=== PATIENT | male | born 1960 | race Caucasian/White ===

== ENCOUNTER → 2024-02-22 11:19 | Outpatient (REF) | payer OTHER, SELFPAY | LOC: DHSLP 11:19 | PROVIDERS: ATTENDING PHYSICIAN Family Medicine | DX: G47.33 Obstructive sleep apnea (adult) (pediatric) (principal) | CPT/HCPCS: 95810 ==

== ENCOUNTER → 2024-06-24 15:40 | Outpatient (REF) | payer OTHER, SELFPAY | LOC: RAD 15:40 | PROVIDERS: ATTENDING PHYSICIAN Family Medicine | DX: R14.0 Abdominal distension (gaseous) (principal); R10.84 Generalized abdominal pain | CPT/HCPCS: 74177; Q9967 ==

== ENCOUNTER → 2024-06-26 08:42 | Outpatient (REF) | payer OTHER, SELFPAY | LOC: RAD 08:42 | PROVIDERS: ATTENDING PHYSICIAN Internal Medicine Endocrinology, Diabetes & Metabolism; FAMILY PHYSICIAN Family Medicine; REFERRING PHYSICIAN Urology | DX: E21.3 Hyperparathyroidism, unspecified (principal) | CPT/HCPCS: 78071; A9500 ==

== ENCOUNTER → 2024-07-10 06:57 | Outpatient (REF) | payer OTHER, SELFPAY | LOC: HWRAD 06:57 | PROVIDERS: ATTENDING PHYSICIAN Family Medicine; OTHER PHYSICIAN Urology; REFERRING PHYSICIAN Internal Medicine Endocrinology, Diabetes & Metabolism | DX: E06.3 Autoimmune thyroiditis (principal); E21.3 Hyperparathyroidism, unspecified; E03.8 Other specified hypothyroidism | CPT/HCPCS: 76536 ==

== ENCOUNTER → 2024-08-05 12:23 | Outpatient (REF) | payer OTHER, SELFPAY | LOC: HWRCS 12:23 | PROVIDERS: ATTENDING PHYSICIAN Internal Medicine Cardiovascular Disease; FAMILY PHYSICIAN Family Medicine | DX: R07.9 Chest pain, unspecified (principal) | CPT/HCPCS: 78452; 93017; A9500 ==

== ENCOUNTER 2024-08-07 08:04 | Day surgery (SDC) | payer OTHER, SELFPAY ==
[2024-08-07] VITALS (19 sets, daily range): BP systolic 100–130; BP diastolic 63–79; BMI 32.1
[2024-08-07] MEDS: LOW STRENGTH ASPIRIN 81 MG PO (08:48)
[2024-08-07] MEDS: NSS 321 ML IV (08:50)
[2024-08-07 11:20] LABS: ACT-LR - POC 361 Seconds (116-155)
[2024-08-07 11:44] LABS: ACT-LR - POC 322 Seconds (116-155)
[2024-08-07 12:10] LABS: ACT-LR - POC 295 Seconds (116-155)
--- NOTE | 2024-08-07 14:10 | PTCARENOTE ---
Patient transferred to IVU. Patient ambulated to bathroom. Blood noted in urine. Dr. Castro aware. INSIDE SOLAR SALES CONSULTANT aware. UA ordered. Patient has history of Bladder CA and currently getting treatment. No pain with urination. No clots. IVU RN aware of plan.
--- NOTE | 2024-08-07 14:32 | PTCARENOTE ---
Patient received from laboratory worker in wheelchair. 1 out 10 left chest soreness unchanged. SB HR 39-41, BP 100/78, POX 99% right hand, right radial band in place, removed 3 cc of air. Voided in the bathroom, urine bloody, Dr Castro notified, UA ordered
and to be collected. Bedside ECHO in process now, lunch ordered, call hewitt in reach
[2024-08-07] MEDS: PROTONIX 40 MG PO (15:02)
--- NOTE | 2024-08-07 15:23 | CM ---
CM following for DC planning needs.
Met w/ patient at bedside to complete initial assessment.
Pt. resides w/ spouse in a private, muil level home. He is functionally indep. 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
Antic. DC plan is for home, no needs.
Will follow.
[2024-08-07 16:21] LABS: Urine Albumin 3+ (Neg - Trace); Urine Bilirubin Negative (Negative); Urine Character Cloudy (Clear); Urine Color Red; Urine Glucose Negative (Negative); Urine Ketone Negative (Negative); Urine Leukocyte 2+ (Negative); Urine Nitrite Negative (Negative); Urine Occult Blood 4+ (Negative); Urine Urobilinogen Negative (Neg - 1+); Urine pH 6.5 (5.0-9.0)
[2024-08-07 16:33] LABS: Urine Bacteria Few (Negative); Urine Red Blood Cell >100 /HPF (0-2); Urine Squamous Cell 0-2 /LPF (Few)
--- NOTE | 2024-08-07 17:06 | W.PN.UPDATE ---
Update Note
Progress Note Update
Appreciate urology input. Check renal and bladder u/s in AM with full bladder. Check CBC in AM. Cont aspirin and Plavix for now.
--- NOTE | 2024-08-07 17:17 | W.PN.URO.CBU ---
Today's Communication / Plan
-
send cx and needs full bladder for u/s if cannot void or disrended vheck bladder scan andf if over 300cc pals=ce [address] or [address] adn start cbi after hand irrigatin pt is voiidng now d[so no instrumentaion if asx
Assessment / Plan
-
dxs include uti, stones bladder cancer , bph but most logical dx is bcg cystitis The question will be if this ca stop sponataneously One option if does mot stop is to hold blood thinners and try asa onyl Will order ur cx and renal /
bladder u/s but if major clots and / or no void then cbi and [address]
Diagnosis
-
Date of Service: August 07, 2024
-
Patient Diagnosis:gross hemaruria without clots in pt s/p cardiac stent on plavix. Pt h/o bladder cancer with neg scope 2 months ago and forhis hgh grade tcc had 3 boosters of bcg last one ending this week
Post Op Day:
Subjective
-
painless entire stream hematuira
Objective
-
Vital Signs
Temp Pulse Resp BP Pulse Ox
97 F 38 18 103/66 98
08/07/24 08:21 08/07/24 14:45 08/07/24 13:07 08/07/24 14:45 08/07/24 14:07
Intake and Output
08/06/24 08/07/24 08/08/24
06:59 06:59 06:59
Intake Total 480 / 480
Output Total 600 / 600
Balance -120 / -120
Intake:
Oral fluids 480 / 480
Output:
Urine, Voided 600 / 600
Review of Systems
-
: Bleeding and Dark Urine
Physical Exam
-
General - well developed, well nourished, no acute distress
Chest - clear bilaterally
Abdomen - soft, non-tender, positive bowel sounds, no CVAT, no incisional pain or distention
Genitalia - normal
Rectal - normal
Skin - warm & dry with no rash
Neuro - AOx3, no motor deficits
Extremities - no clubbing, no cyanosis, no edema
Incision - clean, dry
Dressing - clean, dry, intact
Care Review
Data Reviewed
Discussed with: Cardiology, Nursing and Family
[2024-08-07] MEDS: FLOMAX 0.4 MG PO (17:19)
[2024-08-07] MEDS: LIPITOR 40 MG PO (17:19)
[2024-08-07] MEDS: ZOLOFT 50 MG PO (17:19)
--- NOTE | 2024-08-07 18:30 | ITS.CL.CATH ---
Transportation Worker - Catheterization
Cardiac Catheterization
Procedure Report:
LEFT HEART CATHETERIZATION AND CORONARY INTERVENTION
Date of Procedure: August 07, 2024
Referring: Doug Dixon
PROCEDURES:
1. Left heart catheterization, coronary angiogram.
2. Moderate sedation.
3. Successful percutaneous coronary artery intervention of tubular diffuse up to 90% mid LAD stenosis with one 2.75 x 34 mm Medtronic [place] drug-eluting stent, postdilated using IVUS guidance with a 3.0 x 20 mm NC Euphora balloon at 16 olivier distally
and 20 olivier proximally with an excellent angiographic and IVUS based result.
4. Successful percutaneous coronary artery intervention of focal hazy, thrombotic 80 to 85% distal LAD stenosis with one 2.5 x 12 mm Medtronic [place] drug-eluting stent, postdilated using IVUS guidance with 2.5 x 12 mm NC balloon at 16 olivier with an
excellent angiographic and IVUS based result.
INDICATION: Abnormal stress test
ACCESS: Right radial artery, 6 Fr. sheath, under US guidance
Ultrasound was utilized for vascular access. The radial artery was visualized under ultrasound, and the vessel was patent and pulsatile. An image was stored permanently in the patient's medical record. Under direct ultrasound guidance, a 6 Romansh
sheath was inserted into the artery using a micropuncture kit through a modified Seldinger technique.
HEMODYNAMICS : (mmHg)
AO (s/d) : 146/81
LV (s/d) : 134/5
LVEDP : 17
CORONARY FINDINGS
DOMINANCE: Right
LEFT MAIN: The left main artery is a large-caliber vessel with mild distal tapering and gives off the left anterior descending artery on the left circumflex artery.
LEFT ANTERIOR DESCENDING: The LAD is a large-caliber vessel which gives rise to 1 major high diagonal branch and a second small caliber D2. Mid LAD has tubular up to 90% stenosis at the takeoff of a large septal branch which was intervened upon as
noted below. Distal LAD at the level of the D2 takeoff has a hazy 80 to 85% stenosis which was also intervened upon with details below.
CIRCUMFLEX: The left circumflex artery is a medium caliber vessel which gives rise to 1 major obtuse marginal branch. Ostial left circumflex has 40 percent eccentric stenosis. OM1 has 30 to 40% proximal stenosis.
RIGHT CORONARY ARTERY: The right coronary artery is a medium caliber vessel which gives rise to the right posterior descending artery and the right posterolateral system. There is diffuse mild to moderate atherosclerotic plaque with distal RCA
having to focal regions of 40 to 50% stenosis.
CORONARY INTERVENTION:
SEDATION: 67 minutes of procedural sedation was utilized. An independent medical historian was present to assist with and help manage the patient's level of consciousness and physiologic status.
RADIATION SUMMARY: Fluoro Time (min): 20.4, Dose (mGy): 1484.7, DAP (Gy.cm2) : 106.91
Closure Device: Vascular band over right radial artery, 10 cc of air.
CONCLUSIONS
1. Successful percutaneous coronary artery intervention of tubular diffuse up to 90% mid LAD stenosis with one 2.75 x 34 mm Medtronic [place] drug-eluting stent, postdilated using IVUS guidance with a 3.0 x 20 mm NC Euphora balloon at 16 olivier distally
and 20 olivier proximally with an excellent angiographic and IVUS based result.
2. Successful percutaneous coronary artery intervention of focal hazy, thrombotic 80 to 85% distal LAD stenosis with one 2.5 x 12 mm Medtronic [place] drug-eluting stent, postdilated using IVUS guidance with 2.5 x 12 mm NC balloon at 16 olivier with an
excellent angiographic and IVUS based result.
3. Mildly elevated LVEDP at 17 mmHg.
RECOMMENDATIONS
1. Uninterrupted dual antiplatelet therapy with daily baby aspirin and 75 mg of Plavix along with high intensity statin and beta-medardo as tolerated.
2. Wean radial band per protocol.
3. Aggressive management of cardiovascular risk factors.
4. Full echocardiogram to assess biventricular function and rule out any significant valvular abnormalities.
5. Referral for outpatient cardiac rehab.
Copy to: Doug Dixon MD
Heather Castro MD, FACC, [facility]
--- NOTE | 2024-08-07 22:09 | PTCARENOTE ---
Received pt @ change of shift. AAOx3. VSS. Urine output good (500 cc), and color is yellow. Pt denies any discomfort. Right radial site is clean, dry, and intact. No swelling, and is soft to the touch. Discussed plan of care for evening. Pt
verbalized understanding. Call hewitt within reach.
[2024-08-08 04:10] VITALS: BP 124/74
[2024-08-08 04:39] LABS: Hemoglobin 14.5 g/dL (13.0-18.0); Mean Corp Hgb Conc. 34.5 g/dL (33.0-37.0); Mean Corpuscular Hgb 30.8 pg (27.0-31.0); Mean Corpuscular Volume 89.2 fL (80.0-94.0); Mean Platelet Volume 10.6 fL (7.4-10.4); Platelet Count 202 10^3/uL (130-400); Red Blood Cell Count 4.71 10^6/uL (4.70-6.10); Red Cell Dist. Width 13.2 % (11.5-14.5); White Blood Cell Count 7.8 10^3/uL (4.8-10.8)
[2024-08-08 05:24] LABS: Blood Urea Nitrogen 17 mg/dl (9-20); Calcium 9.9 mg/dl (8.4-10.2); Carbon Dioxide 23 mmol/L (22-30); Chloride 107 mmol/L (98-107); Estimated Creatinine Clearance 118 ml/min; Glucose 120 mg/dl (70-99); Potassium 4.7 mmol/L (3.5-5.1); Sodium 138 mmol/L (135-145); eGFR > 60.00
[2024-08-08] MEDS: SYNTHROID 125 MCG PO (05:27)
[2024-08-08 05:29] VITALS: BMI 32.2
[2024-08-08 07:11] VITALS: BP 133/88
[2024-08-08 07:28] VITALS: BP 135/86
[2024-08-08] MEDS: PLAVIX 75 MG PO (08:46)
[2024-08-08] MEDS: LOW STRENGTH ASPIRIN 81 MG PO (08:46)
[2024-08-08] MEDS: PROTONIX 40 MG PO (08:46)
--- NOTE | 2024-08-08 09:54 | W.PN.URO.CBU ---
Today's Communication / Plan
-
home if ok medicine
Assessment / Plan
-
dxs include uti, stones bladder cancer , bph but most logical dx is bcg cystitis had pre DAPT u/ with 100rbc and leukocytes no nitrites Pt clearing and u/s a[pears benign Suggest home on DAPT ad follow up [facility]
Diagnosis
-
Date of Service: August 08, 2024
-
Patient Diagnosis:
Post Op Day:
Patient Diagnosis:gross hemaruria without clots in pt s/p cardiac stent on plavix. Pt h/o bladder cancer with neg scope 2 months ago and forhis hgh grade tcc had 3 boosters of bcg last one ending this week
Post Op Day:
Subjective
-
urine clearing asx
Objective
-
Vital Signs
Temp Pulse Resp BP Pulse Ox
98.1 F 43 20 135/86 97
08/08/24 07:28 08/08/24 08:00 08/08/24 07:28 08/08/24 07:28 08/08/24 08:51
Intake and Output
08/07/24 08/08/24 08/09/24
06:59 06:59 06:59
Intake Total 480 / 480
Output Total 2049 1100 / 1100
Balance -1570 / -1570 -1100 / -1100
Intake:
Oral fluids 480 / 480
Output:
Urine, Voided 2049 1100 / 1100
Laboratory Results
08/08/24 04:25
08/08/24 04:25
Review of Systems
-
: No Symptoms
Physical Exam
-
General - well developed, well nourished, no acute distress
Chest - clear bilaterally
Abdomen - soft, non-tender, positive bowel sounds, no CVAT, no incisional pain or distention
Genitalia - normal
Rectal - normal
Skin - warm & dry with no rash
Neuro - AOx3, no motor deficits
Extremities - no clubbing, no cyanosis, no edema
Incision - clean, dry
Dressing - clean, dry, intact
Care Review
Data Reviewed
Discussed with: Cardiology, Nursing and Family
Ultrasound: Image Pers Reviewed
Total Time Spent with Patient (in minutes): 45
--- NOTE | 2024-08-08 11:10 | W.PN.CARDCBS ---
Addendum entered and electronically signed by Heather Castro MD 08/08/24 17:15:
I saw and examined the patient.
The Public Records Officer's note was reviewed and I agree with the note.
Comment: Patient did well overnight with no significant complaints. No chest discomfort or shortness of breath. His hematuria also appears to be clearing.
Vital signs and lab work reviewed. On exam patient is well-appearing, no acute distress, regular rate, no JVD, lungs are clear to auscultation bilaterally, no murmurs, rubs or gallops, abdomen is soft, nontender, nondistended with active bowel
sounds, right radial access site with dressing in place which is clean, dry and intact, warm extremities without significant edema.
.
Plan:
1. Continue dual antiplatelet therapy with daily baby aspirin and 75 mg of Plavix along with high intensity statin and beta-medardo as tolerated. LDL goal less than 55.
2. Echocardiogram reviewed showing normal biventricular function with aortic sclerosis.
3. No issues at the right radial access site.
4. As discussed with urology given significant improvement in the hematuria plan to follow-up as an outpatient with his urologist at [facility]. Hemoglobins remained stable. Urine analysis showing positive leuk esterase and blood without
evidence of nitrites. Urology will follow-up on urine culture.
5. Outpatient cardiac rehab referral and cardiology follow-up.
6. Stable for discharge from a cardiac standpoint. Emphasized importance of a high-fiber Mediterranean type diet and staying physically active to optimize his cardiovascular risk.
Heather Castro MD, [facility], [facility]
Original Note:
Today's Communication / Plan
-
post PCI, DAPT
post procedure hematuria most likely heparin related - resolved this am c/y/u
stable for home today
Impression / Plan
-
PCP: Mina Brady, DO
CDY: Doug Dixon MD
Impression:
Abnormal NST
CAD post PCI LAD x 3 KENRICK
PAF [id number] = [id number]
Hypothyroidism
Hyperparathyroidism
PVC's
Bladder cancer follows at [facility]
Hematuria
PTSD/Anxiety
Pre DM
Family hx premature CAD
Plan:
post PCI LAD x 3, no cp
post procedure had gross hematuria, no clots or difficulty passing urine
appreciate urology c/s - u/s this am no hydronephrosis
urine clear and yellow this am
Rad site stable
tele SB HR 40's, asymptomatic but will decrease metoprolol 12.5mg daily
Lipids pending, will increase atorvastatin from 20 to 40mg
DAPT ASA/Plavix
Activity restrictions reviewed
Cardiac rehab c/s
f/u DCA in 2-4 weeks
home today
PROCEDURES:
1. Left heart catheterization, coronary angiogram.
2. Moderate sedation.
3. Successful percutaneous coronary artery intervention of tubular diffuse up to 90% mid LAD stenosis with one 2.75 x 34 mm Medtronic [place] drug-eluting stent, postdilated using IVUS guidance with a 3.0 x 20 mm NC Euphora balloon at 16 olivier distally
and 20 olivier proximally with an excellent angiographic and IVUS based result.
4. Successful percutaneous coronary artery intervention of focal hazy, thrombotic 80 to 85% distal LAD stenosis with one 2.5 x 12 mm Medtronic [place] drug-eluting stent, postdilated using IVUS guidance with 2.5 x 12 mm NC balloon at 16 olivier with an
excellent angiographic and IVUS based result.
Progress Note - Vehicle Leasing And Rental Manager
Subjective
Date of Service: August 08, 2024
no cp, sob, amb room
Objective
Labs:
08/08/24 04:25
08/08/24 04:25
Labs
Hgb 14.5 g/dL (13.0-18.0) 08/08/24 04:25
Hct 42.0 % (39.0-52.0) 08/08/24 04:25
Plt Count 202 10^3/uL (130-400) 08/08/24 04:25
Sodium 138 mmol/L (135-145) 08/08/24 04:25
Potassium 4.7 mmol/L (3.5-5.1) 08/08/24 04:25
BUN 17 mg/dl (9-20) 08/08/24 04:25
Creatinine 0.8 mg/dL (0.7-1.3) 08/08/24 04:25
Glucose 120 mg/dl (70-99) H 08/08/24 04:25
Vital Signs and I&O:
Vital Signs
Temp Pulse Resp BP Pulse Ox
98.1 F 43 20 135/86 97
08/08/24 07:28 08/08/24 08:00 08/08/24 07:28 08/08/24 07:28 08/08/24 08:51
Vital Signs
Temp Pulse Resp BP Pulse Ox
98.1 F 43 20 135/86 97
08/08/24 07:28 08/08/24 08:00 08/08/24 07:28 08/08/24 07:28 08/08/24 08:51
Intake & Output
08/06/24 08/07/24 08/08/24 08/09/24
06:59 06:59 06:59 06:59
Intake Total 480 / 480
Output Total 2049 1100 / 1100
Balance -1570 / -1570 -1100 / -1100
Physical Exam
Physical Exam
NAD< AOX3
S1, S2, RRR
CTAB, non labored, no wheeze
SNTND Bsx4
R rad site c/d/i no HT
[2024-08-08 11:34] VITALS: BP 137/78
[2024-08-08 12:16] LABS: Triglyceride 148 mg/dl (10-149); Very Low Density Lipoprotein 29 mg/dl (0-30)
[2024-08-08 12:26] LABS: HDL Cholesterol 52 mg/dl; LDL Cholesterol, Calculated 53 mg/dl; Total Cholesterol 134 mg/dl (50-199)
--- NOTE | 2024-08-08 12:40 | CM ---
Met w/ patient + spouse at bedside.
Pt. hopeful for DC to home today. He identifies no concerns or needs at this time.
Plan is for home, no needs.
--- NOTE | 2024-08-08 14:02 | W.DS.TRANS ---
DC Summary - Lubricator Granulator
-
Discharge Instructions:
Discharge Diagnosis/Procedures Angioplasty with stent to LAD x 3
Diet Low Cholesterol
Driving Restrictions No driving for 24 hours
Other Services Cardiac Rehab
Instructions:
Stand-Alone Forms: DC Inst - Same Day PCI
Changes to Home Medications: Yes
Discharge Medications:
DC Medications w/original date entered in [employer]
levothyroxine 125 mcg tablet 125 mcg PO DAILY 01/14/16
multivitamin with folic acid 400 mcg tablet (Tab-A-Estevan) 1 tab PO DAILY 01/14/16
cholecalciferol (vitamin D3) 25 mcg (1,000 unit) tablet 2,000 units PO DAILY 01/15/16
alfuzosin 10 mg tablet,extended release 24 hr 10 mg PO DAILY 08/07/24
aspirin 81 mg chewable tablet 81 mg PO DAILY 08/07/24
atorvastatin 40 mg tablet 40 mg PO QPM #90 tabs 08/07/24
clopidogrel 75 mg tablet 75 mg PO DAILY #90 tabs 08/07/24
pantoprazole 40 mg tablet,delayed release 40 mg PO DAILY 08/07/24
sertraline 50 mg tablet 50 mg PO DAILY 08/07/24
sildenafil 100 mg tablet 100 mg PO DAILY PRN erectile dysfunction 08/07/24
metoprolol succinate 25 mg tablet,extended release 24 hr (Toprol XL) 12.5 mg (1/2 x 25 mg) PO DAILY #0 tabs 08/08/24
Home Medication Changes
new to plavix and increased atorvastatin, decreased metoprolol
Pending Results: No
--- NOTE | 2024-08-08 14:14 | PTCARENOTE ---
Pt voiding clear yellow urine. Pt up walking in halls. Pt seen by and Anita Kidd. telemetry and IV device removed. Pt in sinus bradycardia, toprol dose at home lowered per Anita Kidd NP. Pt asymptomatic with heart rate @40's. Discharge
instructions reviewed with pt and her regarding activity adn driving restrictions , wound care, medications and their possible side effects, reporting cares adn concerns and follow up appt's. Very good understanding verbalized. Pt escorted
out via wheelchair and discharged to home.
[2024-08-08 21:23] LABS: Hepatitis C Antibody Negative (Negative)
== END 2024-08-08 13:00 | disposition home or self-care (01) ==
LOC: CATH 08:04
PROVIDERS: Nurse Practitioner Adult Health; Physician Assistant Medical; ATTENDING PHYSICIAN Internal Medicine Interventional Cardiology; CONSULT PHYSICIAN Specialist; FAMILY PHYSICIAN Family Medicine; OTHER PHYSICIAN Internal Medicine Cardiovascular Disease
DX: I25.10 Atherosclerotic heart disease of native coronary artery without angina pectoris (principal); I48.0 Paroxysmal atrial fibrillation; E03.9 Hypothyroidism, unspecified; E21.3 Hyperparathyroidism, unspecified; R94.39 Abnormal result of other cardiovascular function study; I49.3 Ventricular premature depolarization; N30.91 Cystitis, unspecified with hematuria; F43.10 Post-traumatic stress disorder, unspecified; F41.9 Anxiety disorder, unspecified; R73.03 Prediabetes; Z82.49 Family history of ischemic heart disease and other diseases of the circulatory system; Z79.899 Other long term (current) drug therapy; Z79.02 Long term (current) use of antithrombotics/antiplatelets; Z79.82 Long term (current) use of aspirin; Z79.890 Hormone replacement therapy; Z85.51 Personal history of malignant neoplasm of bladder
CPT/HCPCS: 99152; 99153; 76770; 80048; 80061; 81003; 81015; 85027; 85347; 86803; 87086; 93005; 93306; 93458; C1725; C1753; C1874; C1894; C9600

== ENCOUNTER 2024-10-14 08:53 | Outpatient (RCR) | payer OTHER, SELFPAY | END 2024-10-14 23:59 | disposition home or self-care (01) | LOC: CRHB 08:53 | PROVIDERS: ATTENDING PHYSICIAN Internal Medicine Cardiovascular Disease | DX: I25.10 Atherosclerotic heart disease of native coronary artery without angina pectoris (principal); Z95.5 Presence of coronary angioplasty implant and graft | CPT/HCPCS: 93797; 93798 ==

== ENCOUNTER 2024-11-13 08:40 | Outpatient (RCR) | payer OTHER, SELFPAY | END 2024-11-13 23:59 | disposition home or self-care (01) | LOC: CRHB 08:40 | PROVIDERS: ATTENDING PHYSICIAN Internal Medicine Cardiovascular Disease | DX: I25.10 Atherosclerotic heart disease of native coronary artery without angina pectoris (principal); Z95.5 Presence of coronary angioplasty implant and graft | CPT/HCPCS: 93797; 93798 ==

== ENCOUNTER 2024-11-21 16:06 | Outpatient (RCR) | payer OTHER, SELFPAY | END 2024-11-21 23:59 | disposition home or self-care (01) | LOC: CRHB 16:06 | PROVIDERS: ATTENDING PHYSICIAN Internal Medicine Cardiovascular Disease; FAMILY PHYSICIAN Family Medicine | DX: I25.10 Atherosclerotic heart disease of native coronary artery without angina pectoris (principal); Z95.5 Presence of coronary angioplasty implant and graft | CPT/HCPCS: 93797; 93798; G0422; G0423 ==

== ENCOUNTER → 2025-02-19 07:02 | Outpatient (REF) | payer OTHER, SELFPAY | LOC: RAD 07:02 | PROVIDERS: ATTENDING PHYSICIAN Internal Medicine Endocrinology, Diabetes & Metabolism; FAMILY PHYSICIAN Family Medicine | DX: M81.0 Age-related osteoporosis without current pathological fracture (principal) | CPT/HCPCS: 77080 ==